=== PATIENT | female | born 1945 | race Caucasian/White ===

== ENCOUNTER 2016-12-09 14:59 | Emergency (ER) | payer MEDICARE ==
--- NOTE | 2016-12-09 15:47 | ER Document Report ---
ED Medical Screen (RME) - General Chief Complaint: Leg Swelling Stated Complaint: SORE THROAT, EAR PAIN Time Seen by Provider: 12/09/16 15:44 Mode of Arrival: Ambulatory Information source: Patient Notes: This 71-year-old female with a history of meningiomas who is currently getting radiation therapy and is on Decadron who is visiting from [place]. Patient presents to the emergency room with swollen feet, nonproductive cough, sore throat, ache in both ears, teeth pain. Patient denies any fevers, chills, shortness of breath. The patient denies any chest pain or abdominal pain. TRAVEL OUTSIDE OF THE [place] IN LAST 30 DAYS: No - HPI Onset: Last week Onset/Duration: Gradual Quality of pain: No pain Severity: None Pain Level: Denies Associated Symptoms: Cough (nonproductive). denies: Chest pain, Shortness of breath Exacerbated by: Denies Relieved by: Denies Similar symptoms previously: No Recently seen / treated by doctor: No - Related Data Smoking: Non-smoker Frequency of alcohol use: None Drug Abuse: None Allergies/Adverse Reactions: No Known Allergies Allergy (Verified 12/09/16 15:07) Past Medical History - General Information source: Patient - Social History Cigarette use (# per day): No Chew tobacco use (# tins/day): No Frequency of alcohol use: None Drug Abuse: None Lives with: Family Family history: None - Past Medical History Cardiac Medical History: Reports: None Pulmonary Medical History: Reports: None EENT Medical History: Reports: None Neurological Medical History: Reports: None Endocrine Medical History: Reports: None Renal/ Medical History: Reports: None. Denies: Hx Peritoneal Dialysis Malignancy Medical History: Reports: Other - Angiomas, currently getting radiation therapy GI Medical History: Reports: None Musculoskeltal Medical History: Reports None Skin Medical History: Reports None Psychiatric Medical History: Reports: None Traumatic Medical History: Reports: None Surgical Hx: Other - nonContributory - Immunizations Hx Diphtheria, Pertussis, Tetanus Vaccination: Yes Review of Systems - Review of Systems Constitutional: denies: Chills, Fever EENT: Other - Sore throat, nonproductive cough, bilateral ear pain Cardiovascular: No symptoms reported Respiratory: No symptoms reported Gastrointestinal: No symptoms reported Genitourinary: No symptoms reported Female Genitourinary: No symptoms reported Musculoskeletal: See HPI Skin: See HPI Hematologic/Lymphatic: No symptoms reported Neurological/Psychological: No symptoms reported Physical Exam - Vital signs Vitals: Temp Pulse Resp BP Pulse Ox 98.2 F 91 20 127/68 H 96 12/09/16 15:07 12/09/16 15:07 12/09/16 15:07 12/09/16 15:07 12/09/16 15:07 Notes: Physical exam: GENERAL: 71-year-old female, alert and oriented 3, no acute distress HEAD: Atraumatic, normocephalic. EYES: Pupils equal round and reactive to light, extraocular movements intact, sclera anicteric, conjunctiva are normal. ENT: TMs normal, nares patent, oropharynx clear without exudates. Moist mucous membranes. NECK: Normal range of motion, supple without lymphadenopathy or JVD. LUNGS: Breath sounds clear to auscultation bilaterally and equal. No wheezes rales or rhonchi. HEART: Regular rate and rhythm without murmurs, rubs or gallops. ABDOMEN: Soft, normoactive bowel sounds. No tenderness to palpation. No guarding, no rebound. No masses appreciated. EXTREMITIES: Bilateral pedal edema of the feet. Patient does not have any calf swelling or pain. Patient does have a small superficial ulceration to the dorsal aspect of the left foot that does not have any erythema, warmth or discharge from it. NEUROLOGICAL: Cranial nerves II through XII grossly intact. Normal speech, normal gait. PSYCH: Normal mood, normal affect. SKIN: Warm, Dry, normal turgor, no rashes or lesions noted. Course - Re-evaluation Re-evalutation: 12/09/16 17:14 Note: I spoke to the patient's radiation oncologist in [place] (Dr Cedillo) patient well. He agreed that short-term Lasix may help the pedal edema. The patient is on steroids (which makes her prone to edema) and she has been dependent since driving up in [place]. A short course of Lasix may actually help the pedal edema. As far as her symptoms of nonproductive cough, sore throat and ear pressure: Given her immune status (she is on DEXA Methasone), Dr Cedillo did putting her on Bactrim I will do. Lastly, he recommended decreasing the dexamethasone to 2 mg a day. I have given the patient a copy of her labs to follow-up with her primary care doctor. Dr Cedillo with the patient' s H&H at baseline was. The patient is somewhat anemic. She does not have any complaints of bleeding or dark stools 12/09/16 19:48 - Vital Signs Vital signs: Temp Pulse Resp BP Pulse Ox 97.7 F 69 14 109/59 L 97 12/09/16 17:21 12/09/16 17:21 12/09/16 17:21 12/09/16 17:21 12/09/16 17:21 - Laboratory Result Diagrams: 12/09/16 15:57 12/09/16 15:57 Laboratory results interpreted by me: 12/09/16 12/09/16 15:57 15:57 RBC 2.57 L Hgb 8.9 L Hct 27.2 L MCV 106 H MCH 34.6 H RDW 23.2 H Seg Neutrophils % 91.4 H Lymphocytes % 6.0 L Monocytes % 2.4 L Absolute Neutrophils 9.4 H BUN 36 H Direct Bilirubin 0.5 H ALT 53 H Total Protein 6.1 L - Diagnostic Test Radiology reviewed: Image reviewed, Reports reviewed - Shows no obvious infiltrates Doctor's Discharge - Discharge Clinical Impression: Pedal edema Condition: Stable Disposition: HOME, SELF-CARE Instructions: Dependent Edema ([facility]) Additional Instructions: Recommendations: Elevate legs when resting at home. Take the Lasix daily for the next week. Wear support stockings: These will help the blood flowing out of the leg and reduce the swelling. Decrease the dose of dexamethasone to 2 mg daily Bactrim as prescribed Continue the other medicines Back home in [place], follow-up with Dr. Cedillo. Bring a copy of today's labs with you when you go. Take close attention to your bowel movements: If you start having black stools, return to the emergency room Also, return to the emergency room for any shortness of breath, high fevers, any concerns or getting worse. Prescriptions: Furosemide [Lasix 20 mg Tablet] 20 mg PO QAM #7 tablet Sulfamethoxazole/Trimethoprim [Bactrim Ds Tablet] 1 each PO BID #14 tablet
[2016-12-09 16:10] LABS: ABSOLUTE LYMPHOCYTES (AUTO) 0.6 10^3/uL (0.5-4.7); ABSOLUTE MONOCYTES (AUTO) 0.3 10^3/uL (0.1-1.4); ABSOLUTE NEUT (AUTO) 9.4 10^3/uL (1.7-8.2); BASOPHILS % (AUTO) 0.2 % (0-2); HEMATOCRIT 27.2 % (36.0-47.0); HEMOGLOBIN 8.9 g/dL (12.0-15.5); HGB HCT DIFFERENCE -0.5; MEAN CORPUSCULAR HEMOGLOBIN 34.6 pg (27.0-33.4); MEAN CORPUSCULAR HGB CONC 32.7 g/dL (32.0-36.0); MEAN CORPUSCULAR VOLUME 106 fl (80-97); MONOCYTES % (AUTO) 2.4 % (3-13); RED BLOOD COUNT 2.57 10^6/uL (3.72-5.28); RED CELL DISTRIBUTION WIDTH 23.2 % (11.5-14.0); SEGMENTED NEUTROPHILS % (AUTO) 91.4 % (42-78); WHITE BLOOD COUNT 10.3 10^3/uL (4.0-10.5)
--- NOTE | 2016-12-09 16:29 | RADIOLOGY REPORT (SQ) ---
EXAM DESCRIPTION: CHEST PA/LAT COMPLETED DATE/TIME: 12/09/2016 4:19 pm REASON FOR STUDY: cough COMPARISON: None. EXAM PARAMETERS: NUMBER OF VIEWS: two views TECHNIQUE: Digital Frontal and Lateral radiographic views of the chest acquired. RADIATION DOSE: NA LIMITATIONS: none FINDINGS: LUNGS AND PLEURA: There is linear atelectasis in the right base. There is elevation of th e right hemidiaphragm. MEDIASTINUM AND HILAR STRUCTURES: No masses or contour abnormalities. HEART AND VASCULAR STRUCTURES: Heart normal size. No evidence for failure. BONES: No acute findings. HARDWARE: None in the chest. OTHER: No other significant finding. IMPRESSION: Elevated right hemidiaphragm with minimal linear atelectasis in the right base. TECHNICAL DOCUMENTATION: JOB ID: [id number] [employer]- All Rights Reserved
[2016-12-09 16:30] LABS: ALANINE AMINOTRANSFERASE 53 U/L (9-52); ALBUMIN 3.7 g/dL (3.5-5.0); ALKALINE PHOSPHATASE 46 U/L (38-126); ANION GAP 8 (5-19); ASPARTATE AMINO TRANSFERASE 29 U/L (14-36); BILIRUBIN,DIRECT 0.5 mg/dL (0.0-0.4); BILIRUBIN,TOTAL 1.1 mg/dL (0.2-1.3); BLOOD UREA NITROGEN 36 mg/dL (7-20); CALCIUM 8.5 mg/dL (8.4-10.2); CARBON DIOXIDE 27 mmol/L (22-30); CHLORIDE 102 mmol/L (98-107); GLUCOSE 106 mg/dL (75-110); POTASSIUM 3.9 mmol/L (3.6-5.0); SODIUM 137.2 mmol/L (137-145); TOTAL PROTEIN 6.1 g/dL (6.3-8.2)
[2016-12-09 17:22] VITALS: BP 109/59
== END 2016-12-09 17:42 | disposition home or self-care (01) ==
LOC: ER 14:59
DX: R60.0 Localized edema (principal); D32.9 Benign neoplasm of meninges, unspecified; R05 Cough; J02.9 Acute pharyngitis, unspecified; K08.89 Other specified disorders of teeth and supporting structures; H92.03 Otalgia, bilateral; L97.529 Non-pressure chronic ulcer of other part of left foot with unspecified severity; D64.9 Anemia, unspecified; Z79.52 Long term (current) use of systemic steroids
CPT/HCPCS: 36415; 71020; 80053; 85025; 99283